=== PATIENT | female | born 1970 | race Caucasian/White ===

== ENCOUNTER → 2017-12-27 | Outpatient (CLI) | payer OTHER ==
[~2017-12-27] MED LIST: PROHANCE 279.3MG/ML 15ML VIAL (A9576) As Ordered; PROHANCE 279.3MG/ML 5ML VIAL (A9576) As Ordered
== END ==
LOC: M RAD 07:26
DX: H11.33 Conjunctival hemorrhage, bilateral (principal); C85.12 Unspecified B-cell lymphoma, intrathoracic lymph nodes
CPT/HCPCS: A9576

== ENCOUNTER → 2019-12-11 | Outpatient (CLI) | payer OTHER ==
--- NOTE | 2019-12-11 15:05 | REP ---
[facility] FACIAL CT STUDY WITHOUT CONTRAST: HISTORY: Acute sinusitis. Comparison is made with images from MRI study of the brain December 27, 2017. CT FINDINGS: The frontal sinuses are clear. Ethmoid sinuses are clear. There is a tiny zone of mucosal thickening in the right side of the sphenoid sinus. The sphenoid sinus air cells are otherwise clear. Maxillary sinuses are clear. Mastoid aeration is normal and symmetric. Middle ear cavities are aerated. No intraorbital abnormality is appreciated. The deep facial soft tissues are unremarkable. Bony nasal septum is midline. Nasal turbinate soft tissues are normal and symmetric. Ostiomeatal complexes are patent bilaterally. The visualized intracranial soft tissues are unremarkable. IMPRESSION: There is a tiny zone of mucosal thickening in the right side of the sphenoid sinus. Otherwise negative paranasal sinus CT study. Electronically Signed by Sinan Bonilla MD 12/11/2019 03:29 P
== END ==
LOC: M RAD 13:23
PROVIDERS: ATTEND Family Medicine
DX: J01.90 Acute sinusitis, unspecified (principal)

== ENCOUNTER → 2022-01-05 | Outpatient (CLI) | payer OTHER | LOC: M WHC 15:14 | PROVIDERS: ATTEND Family Medicine | DX: M85.851 Other specified disorders of bone density and structure, right thigh (principal); Z79.811 Long term (current) use of aromatase inhibitors ==

== ENCOUNTER 2022-05-28 12:34 | Emergency (ER) | payer OTHER ==
[~2022-05-28] VITALS: Ht 160 cm; Wt 104.5 kg
[2022-05-28 13:32] LABS: BASO % 0.7 % (0.0-1.0); EOS # 0.1 10^3/uL (0.0-0.5); EOS % 0.9 % (0.0-3.0); HEMATOCRIT 36.3 % (36.0-47.0); HEMOGLOBIN 12.1 g/dl (12.0-15.5); LYMPH # 1.8 10^3/uL (1.5-5.0); LYMPH % 31.4 % (24.0-44.0); MEAN CORPUSCULAR HEMOGLOBIN 27.9 pg (27.0-33.0); MEAN CORPUSCULAR HGB CONC 33.3 g/dl (32.0-36.5); MEAN CORPUSCULAR VOLUME 83.8 fl (80.0-96.0); MONO # 0.5 10^3/uL (0.0-0.8); MONO % 8.2 % (2.0-8.0); NEUTROPHILS # 3.4 10^3/uL (1.5-8.5); NEUTROPHILS % 57.9 % (36.0-66.0); PLATELET COUNT, AUTOMATED 254 10^3/uL (150-450); RED BLOOD COUNT 4.33 10^6/uL (4.00-5.40); WHITE BLOOD COUNT 5.8 10^3/uL (4.0-10.0)
[2022-05-28 14:14] LABS: BLOOD UREA NITROGEN 10 MG/DL (7-18); CALCIUM LEVEL 8.9 MG/DL (8.5-10.1); CARBON DIOXIDE LEVEL 30 MEQ/L (21-32); CHLORIDE LEVEL 108 MEQ/L (98-107); CREATININE FOR GFR 0.66 MG/DL (0.55-1.30); GLOMERULAR FILTRATION RATE > 60.0 (>51); GLUCOSE, FASTING 112 MG/DL (70-100); POTASSIUM SERUM 4.4 MEQ/L (3.5-5.1); SODIUM LEVEL 140 MEQ/L (136-145)
[2022-05-28 14:16] LABS: CK-MB VALUE MASS < 1.0 NG/ML (<3.6); CPK CREATINE PHOSPHOKINASE 106 U/L (26-192); MB/CK RELATIVE INDEX 0.94 (< OR =4)
[2022-05-28 17:59] VITALS: BP 131/64
== END 2022-05-28 18:01 | disposition home or self-care (01) ==
LOC: M ED 12:34
DX: R07.9 Chest pain, unspecified (principal); R42 Dizziness and giddiness; I44.4 Left anterior fascicular block; J45.909 Unspecified asthma, uncomplicated; E78.5 Hyperlipidemia, unspecified; G47.33 Obstructive sleep apnea (adult) (pediatric); C50.919 Malignant neoplasm of unspecified site of unspecified female breast; Z88.0 Allergy status to penicillin; Z88.1 Allergy status to other antibiotic agents; Z91.048 Other nonmedicinal substance allergy status

== ENCOUNTER → 2024-04-28 | Outpatient (CLI) | payer OTHER | LOC: M WHC 09:21 | PROVIDERS: ATTEND Nurse Practitioner | DX: Z13.820 Encounter for screening for osteoporosis (principal); Z79.818 Long term (current) use of other agents affecting estrogen receptors and estrogen levels; M85.851 Other specified disorders of bone density and structure, right thigh; M85.852 Other specified disorders of bone density and structure, left thigh ==